=== PATIENT | female | born 1975 | race Asian ===

== ENCOUNTER 2021-02-03 14:49 | Emergency (ER) | payer OTHER ==
[~2021-02-03 14:49] MED LIST: Aspirin Chewable 81 MG TAB ONE; Mag-Al Plus 1200 MG/1200 MG/120 MG/30 ML UDCUP ONE
[2021-02-03 15:12] LABS: Bilirubin Neg (Negative); Blood, Urine Negative (Negative); Clarity Clear (Clear); Glucose, Urine (Dipstick) Normal (Negative); Ketone, Urine Negative (Negative); Leukocyte Negative (Negative); Nitrite Negative (Negative); Protein, Urine (Dipstick) Negative (Neg-Trace); Specific Gravity, Urine 1.005 (1.002-1.036); Urobilinogen Normal mg/dL (Less than 2)
[2021-02-03 15:15] LABS: #Basophils 0.1 10x3/uL (0.0-0.2); #Eosinphils 0.1 10x3/uL (0.0-0.5); #Monocytes 0.4 10x3/uL (0.0-1.1); #Neutrophils 2.2 10x3/uL (1.5-8.4); %Basophils 1.6 % (0.0-2.0); %Eosinophils 1.8 % (0.0-6.0); %Lymphocytes 35.9 % (18.0-47.0); %Monocytes 10.1 % (0.0-10.0); %Neutrophils 50.4 % (40.0-75.0); Hemoglobin 11.6 g/dL (12.0-15.5); Mean Corpuscular HGB CONC 32.5 g/dL (32.0-36.0); Mean Corpuscular Hemoglobin 27.2 pg (27.0-33.0); Mean Corpuscular Volume 83.8 fl (81.6-98.3); Mean Platelet Volume 9.9 fl (7.4-10.4); Platelet Count 261 10x3/uL (150-450); RBC Distribution Width 12.8 % (11.5-14.5); Red Blood Cell (RBC) Count 4.26 10x6/uL (3.90-5.03); White Blood Cell (WBC) Count 4.4 10x3/uL (3.5-10.5)
[2021-02-03 15:15] LABS: Pregnancy Test - Urine (BHCG) Negative (Negative); Pregu Control Background? CLEAR/WHITE (CLR/WHITE); Pregu Control Bar Appear? YES (CONTROL BAR); Specific Gravity 1.005 (1.002-1.036)
[2021-02-03 15:19] LABS: ALT (SGPT) 8 U/L (8-55); AST (SGOT) 11 U/L (5-34); Albumin 4.4 g/dL (3.5-5.0); Alkaline Phosphatase 39 U/L (40-110); Anion Gap 13 mmol/L (10-20); BUN (Urea Nitrogen) 10 mg/dL (7.0-18.7); Bilirubin, Total 0.4 mg/dL (0.2-1.2); Calc. Creatinine Clearance 0 mL/min (70-130); Calcium 9.1 mg/dL (7.8-10.44); Carbon Dioxide 24 mmol/L (22-29); Chloride 105 mmol/L (98-107); Globulin 3.3 g/dL (2.4-3.5); Glucose 101 mg/dL (70-105); Lipase 54 U/L (8-78); Protein, Total 7.7 g/dL (6.0-8.3); Sodium 138 mmol/L (136-145)
[2021-02-03 15:20] LABS: Troponin I Less than 0.010 ng/mL (< 0.028)
[2021-02-03 16:45] LABS: Troponin I Less than 0.010 ng/mL (< 0.028)
== END 2021-02-03 18:02 | disposition home or self-care (01) ==
LOC: CSHERS 14:49
DX: R07.89 Other chest pain (principal); M54.6 Pain in thoracic spine
CPT/HCPCS: 36415; 71045; 71275; 80053; 81003; 81025; 83690; 84484; 85025; 85379; 93005; 93010

== ENCOUNTER 2023-08-20 12:04 | Emergency (ER) | payer BC ==
[2023-08-20] MEDS ORDERED: Ondansetron ODT 4 MG TAB ONE (12:44)
[2023-08-20] MEDS ORDERED: Meclizine HCl 25 MG TAB ONE ×2 (12:44→13:36)
[2023-08-20] MEDS ORDERED: Oxymetazoline HCl 0.05% ( 15 ML ) ONE (13:34)
== END 2023-08-20 16:55 | disposition home or self-care (01) ==
LOC: CSHERS 12:04
DX: H81.11 Benign paroxysmal vertigo, right ear (principal)
CPT/HCPCS: 71045; 93005; Q0162